=== PATIENT | male | born 1975 | race Caucasian/White ===

== ENCOUNTER 2019-11-11 13:03 | Emergency (ER) | payer MEDICAID ==
[~2019-11-11] VITALS: Ht 177.8 cm; Wt 104.5 kg
[2019-11-11] MEDS ORDERED: KETOROLAC 30MG/ML VIAL IM ONE (13:45)
[2019-11-11 13:58] VITALS: BP 125/81
== END 2019-11-11 15:07 | disposition home or self-care (01) ==
LOC: ER 13:23
DX: S93.491A Sprain of other ligament of right ankle, initial encounter (principal); X50.9XXA Other and unspecified overexertion or strenuous movements or postures, initial encounter; Y93.89 Activity, other specified; Y92.89 Other specified places as the place of occurrence of the external cause; Y99.8 Other external cause status
CPT/HCPCS: 73610; 96372; 99283; J1885